=== PATIENT | male | born 1990 | race Caucasian/White ===

== ENCOUNTER 2021-01-20 17:28 | Emergency (ER) | payer OTHER ==
[~2021-01-20] VITALS: Ht 175.3 cm; Wt 54.4 kg
[2021-01-20 17:30] VITALS: BP 146/93
[2021-01-20] MEDS ORDERED: LANTUS SUBQ ×2 (17:38→17:45)
[2021-01-20] MEDS ORDERED: NOVOLOG100 UNIT/M SUBQ (17:39)
== END 2021-01-20 17:50 | disposition home or self-care (01) ==
LOC: ER 17:28
DX: E10.9 Type 1 diabetes mellitus without complications (principal); Z76.0 Encounter for issue of repeat prescription; Z88.2 Allergy status to sulfonamides